=== PATIENT | female | born 1985 | race Caucasian/White ===

== ENCOUNTER 2022-03-30 00:04 | Emergency (ER) | payer OTHER ==
[2022-03-30 00:10] VITALS: BP 138/85; PULSE 62; RESP 18; TEMP 98.1; BMI 27.4
[2022-03-30 01:00] LABS: BASO % 0.4 % (0-2.0); EOS % 3.5 % (0-4.5); HEMATOCRIT 37.4 % (32.4-45.2); LYMPH % 19.5 % (8-40); MCH 31.2 pg (25.7-33.7); MCHC 34.8 g/dl (32.0-36.0); MEAN CELL VOLUME 89.7 fl (80-96); MEAN PLT VOLUME 8.4 fl (7.5-11.1); MONO % 8.4 % (3.8-10.2); NEUT % 68.2 % (42.8-82.8); PLATELET COUNT 224 10^3/uL (134-434); RBC 4.16 M/mm3 (3.60-5.2); RDW 14.4 % (11.6-15.6); WHITE BLOOD COUNT 6.5 K/mm3 (4.0-10.0)
[2022-03-30 01:21] LABS: CALCIUM 8.8 mg/dL (8.5-10.1)
[2022-03-30 01:22] LABS: ALBUMIN 3.2 g/dl (3.4-5.0); BLOOD UREA NITROGEN 8.6 mg/dL (7-18)
[2022-03-30 01:25] LABS: CREATININE 0.5 mg/dL (0.55-1.3)
[2022-03-30 01:26] LABS: BILIRUBIN,TOTAL 0.3 mg/dL (0.2-1); TOT PROT 6.8 g/dl (6.4-8.2)
== END 2022-03-30 02:42 | disposition home or self-care (01) ==
LOC: JER 00:04
DX: O02.1 Missed abortion (principal)
CPT/HCPCS: 36415; 76801-TC; 80053; 84702; 85025; 86850; 86900; 86901; 99284-25

== ENCOUNTER 2022-04-02 13:25 | Emergency (ER) | payer OTHER ==
[2022-04-02 13:48] VITALS: TEMP 97.9; BMI 27.4
[2022-04-02] MEDS ORDERED: ACETAMINOPHEN 1000 MG/100 ML BAG IVPB ONE (14:03)
[2022-04-02] MEDS ORDERED: LACTATED RINGERS SOLUTION 1000 ML INFUS.BAG IV ONE (14:03)
[2022-04-02] MEDS ORDERED: METHYLERGONOVINE MALEATE 0.2 MG/1 ML AMP IM ONE (14:06)
[2022-04-02] MEDS ORDERED: morphine CARPU-JECT 2 MG/1 ML DISP.SYRIN IVPUSH ONE (14:26)
[2022-04-02] MEDS ORDERED: ACETAMINOPHEN INJECTION 100 ML IVPB ONE (14:28)
[2022-04-02 14:36] LABS: BASO % 0.3 % (0-2.0); HEMATOCRIT 34.3 % (32.4-45.2); HEMOGLOBIN 11.6 GM/dL (10.7-15.3); LYMPH % 20.1 % (8-40); MCH 30.7 pg (25.7-33.7); MCHC 33.9 g/dl (32.0-36.0); MEAN CELL VOLUME 90.6 fl (80-96); MEAN PLT VOLUME 9.1 fl (7.5-11.1); MONO % 5.8 % (3.8-10.2); NEUT % 71.8 % (42.8-82.8); PLATELET COUNT 280 10^3/uL (134-434); RBC 3.79 M/mm3 (3.60-5.2); RDW 14.1 % (11.6-15.6); WHITE BLOOD COUNT 10.3 K/mm3 (4.0-10.0)
[2022-04-02 14:40] LABS: INR 1.15 (0.83-1.09); PROTHROMBIN TIME (PATIENT) 13.2 SEC (9.7-13.0)
[2022-04-02 14:44] LABS: ACTIVATED PTT 25.1 SECONDS (25.2-36.5)
[2022-04-02] MEDS ORDERED: DOXYCYCLINE INJECTION 100 MG in DEXTROSE 5%-WATER 100 ML IVPB ONE ×2 (14:54→16:00)
[2022-04-02 14:55] LABS: BLOOD UREA NITROGEN 8.7 mg/dL (7-18); CALCIUM 8.6 mg/dL (8.5-10.1)
[2022-04-02 14:56] LABS: ALBUMIN 3.1 g/dl (3.4-5.0)
[2022-04-02 14:59] LABS: CREATININE 0.6 mg/dL (0.55-1.3)
[2022-04-02 15:00] LABS: BILIRUBIN,TOTAL 0.2 mg/dL (0.2-1); TOT PROT 6.4 g/dl (6.4-8.2)
[2022-04-02] MEDS ORDERED: OXYTOCIN 20 UNITS in 0.9% NS 20 UNIT/1,000 ML INFUS.BAG IV SCH ×2 (15:00→15:59)
[2022-04-02 17:07] LABS: HEMATOCRIT 30.1 % (32.4-45.2); HEMOGLOBIN 10.3 GM/dL (10.7-15.3); MCH 30.8 pg (25.7-33.7); MCHC 34.1 g/dl (32.0-36.0); MEAN CELL VOLUME 90.1 fl (80-96); MEAN PLT VOLUME 8.8 fl (7.5-11.1); PLATELET COUNT 209 10^3/uL (134-434); RBC 3.35 M/mm3 (3.60-5.2); RDW 13.9 % (11.6-15.6); WHITE BLOOD COUNT 13.7 K/mm3 (4.0-10.0)
[2022-04-02 19:19] VITALS: RESP 18
[2022-04-02 19:22] VITALS: PULSE 67
[2022-04-02 20:08] VITALS: BP 105/51
== END 2022-04-02 21:42 | disposition home or self-care (01) ==
LOC: JER 13:25
PROC: 3E0333Z Introduction of Anti-inflammatory into Peripheral Vein, Percutaneous Approach (ICD-10-PCS; principal; 2022-04-02)
PROC: 3E03329 Introduction of Other Anti-infective into Peripheral Vein, Percutaneous Approach (ICD-10-PCS; 2022-04-02)
PROC: 3E033NZ Introduction of Analgesics, Hypnotics, Sedatives into Peripheral Vein, Percutaneous Approach (ICD-10-PCS; 2022-04-02)
PROC: 3E023NZ Introduction of Analgesics, Hypnotics, Sedatives into Muscle, Percutaneous Approach (ICD-10-PCS; 2022-04-02)
DX: O03.9 Complete or unspecified spontaneous abortion without complication (principal)
CPT/HCPCS: 36415; 76830-TC; 80053; 84702; 85025; 85027; 85610; 85730; 86850; 86900; 86901; 88304-TC; 99284-25

== ENCOUNTER 2022-11-18 10:28 | Emergency (ER) | payer OTHER ==
[2022-11-18 10:59] VITALS: BP 125/55; PULSE 58; RESP 16; TEMP 98.3; BMI 28.5
[2022-11-18 12:11] LABS: HCG,QUALITATIVE URINE Positive
[2022-11-18 12:12] LABS: BASO % 0.6 % (0-2.0); EOS % 3.4 % (0-4.5); HEMATOCRIT 38.2 % (32.4-45.2); LYMPH % 17.3 % (8-40); MCH 30.2 pg (25.7-33.7); MCHC 34.1 g/dl (32.0-36.0); MEAN CELL VOLUME 88.6 fl (80-96); MEAN PLT VOLUME 8.8 fl (7.5-11.1); MONO % 6.6 % (3.8-10.2); NEUT % 72.1 % (42.8-82.8); PLATELET COUNT 202 10^3/uL (134-434); RBC 4.31 M/mm3 (3.60-5.2); RDW 13.2 % (11.6-15.6); WHITE BLOOD COUNT 6.8 K/mm3 (4.0-10.0)
[2022-11-18 12:15] LABS: EPI CELLS 23 /uL (0-25.1); HYALINE CASTS 0 /uL (0-3.1); URINE APPEARANCE CLEAR; URINE BACTERIA 416 /uL (0-1359); URINE BILIRUBIN NEGATIVE (NEGATIVE); URINE COLOR YELLOW; URINE GLUCOSE (UA) NEGATIVE (NEGATIVE); URINE KETONE NEGATIVE (NEGATIVE); URINE LEUK ESTERASE NEGATIVE (NEGATIVE); URINE NITRITE NEGATIVE (NEGATIVE); URINE PROTEIN NEGATIVE (NEGATIVE); URINE RBC 46 /uL (0-23.9); URINE UROBILINOGEN 0.2 mg/dL (0.2-1.0); URINE WBC 27 /uL (0-25.8)
[2022-11-18 12:31] LABS: POTASSIUM 3.7 mmol/L (3.5-5.1)
[2022-11-18 12:33] LABS: BLOOD UREA NITROGEN 8.6 mg/dL (7-18)
[2022-11-18 12:36] LABS: CREATININE 0.6 mg/dL (0.55-1.3)
[2022-11-18 12:38] LABS: BILIRUBIN,TOTAL 0.6 mg/dL (0.2-1); TOT PROT 7.7 g/dl (6.4-8.2)
== END 2022-11-18 13:55 | disposition home or self-care (01) ==
LOC: JER 10:28 → JERFT 10:28
DX: O20.9 Hemorrhage in early pregnancy, unspecified (principal)
CPT/HCPCS: 36415; 76801-TC; 80053; 81003; 84702; 84703; 85025; 86850; 86900; 86901; 87086; 87491; 87591; 99284-25

== ENCOUNTER 2022-11-20 11:12 | Emergency (ER) | payer OTHER ==
[2022-11-20 11:25] VITALS: BP 110/57; PULSE 78; RESP 18; TEMP 98.8; BMI 24.3
== END 2022-11-20 14:04 | disposition home or self-care (01) ==
LOC: JER 11:12
DX: O20.9 Hemorrhage in early pregnancy, unspecified (principal)
CPT/HCPCS: 36415; 84702; 99283-25